=== PATIENT | female | born 1980 | race Caucasian/White ===

== ENCOUNTER 2020-05-08 09:56 | Emergency (ER) | payer OTHER, SELFPAY ==
[2020-05-08 10:06] VITALS: BP 132/92; PULSE 66; RESP 20; O2SAT 100
[2020-05-08 10:51] LABS: Add Urine Microscopic? NO; Appearance Urine Clear (Clear); Bilirubin Urine Negative (Negative); Blood Urine Negative (Negative); Color Urine Straw (Yellow); Glucose Urine UA Negative (Negative); Ketones Urine Negative (Negative); Leukocyte Esterase Ur Negative LEU/UL (Negative); Nitrate Urine Negative (Negative); Protein Urine Negative (Negative); Specific Grav Ur 1.008 (1.001-1.035); Urobilinogen Urine Negative mg/dL (<2.0)
--- NOTE | 2020-05-08 11:02 | ED.HA ---
HPI - Headache General Chief Complaint: Headache Stated Complaint: Neuro Symptoms - LANDIS Time Seen by Provider: 05/08/20 10:13 Source: patient Mode of arrival: ambulatory Limitations: no limitations History of Present Illness HPI Narrative: Patient is a 39-year-old female who presents with headache and visual disturbance that occurred while driving today noted that she had loss patient notes that she lost momentary vision in the right eye involving the periphery this morning while driving to work with left frontal headache patient notes history of migraines but denies similar occurrence in the past as far as visual disturbances are concerned. Patient went to [facility] and was referred to emergency department. On arrival patient notes that her vision has returned to normal and now she has left-sided headache but is feeling much better. Patient also notes she had an anxiety attack at the time of the onset of symptoms Related Data Home Medications Medication Instructions Recorded Confirmed No Home Medications 05/08/20 05/08/20 Allergies Allergy/AdvReac Type Severity Reaction Status Date / Time No Known Allergies Allergy Verified 05/08/20 10:11 Review of Systems Review of Systems: All systems reviewed & are unremarkable except as noted in HPI and below PMFSH Past Medical History Medical History Migraine headache Surgical History Surgical History H/O section Social History Social History (Updated 05/08/20 @ 11:04 by Warren Cervantes PA-C) Smoking status: Never smoker Exam Narrative: Exam Narrative: GENERAL: Well-appearing, well-nourished, and in no acute distress. HEAD: Normocephalic, atraumatic. EYES: PERRLA and EOMI. ENT: Nares clear, no rhinorrhea or epistaxis. Mucous membranes moist. Oropharynx without tonsillar hypertrophy exudate or other lesions. NECK: Supple. No adenopathy or masses. No carotid bruits or JVD CHEST: Clear to auscultation. No respiratory distress. No wheezes rales or rhonchi HEART: Regular rate and rhythm. No murmur heard. Normal peripheral pulses. EXTREMITIES: Normal range of motion. No edema. SKIN: Warm, dry, no rash. NEURO: No focal deficits. Alert and oriented x3. Cranial nerves II through XII grossly intact. Cerebellar intact. Normal speech and gait. Normal [id number] and [id number]. No pronator drift PSYCH: Normal mood and affect. Course Course Emergency Course: Patient in the room in no distress refusing to have an IV prefers to take an ibuprofen notes that she feels fine at this time and would like to be discharged home and will follow with specialty services refused other intervention Vital Signs Vital signs: Vital Signs Pulse Rate 66 05/08/20 10:06 Respiratory Rate 20 05/08/20 10:06 Blood Pressure 132/92 H 05/08/20 10:06 Pulse Oximetry 100 05/08/20 10:06 Pulse Rate 66 05/08/20 10:06 Respiratory Rate 20 05/08/20 10:06 Blood Pressure 132/92 H 05/08/20 10:06 Pulse Oximetry 100 05/08/20 10:06 MDM - Headache MDM Narrative Medical decision making narrative: Patients headache was not sudden or maximal in onset. There are o focal neurological deficits on exam. Subarachnoid hemorrhage is felt to be unlikey at this time. There is no history of fever, and neck is supple without meningismus, making meningitis unlikely. No traumatic history or signs of trauma on exam. No risk factors for CVA, risk factors reviewed. Willard that the patient is likely having a variant of her migraine. Patient will be referred to neurology. patients headache is felt to be a reasonable candidate for outpatient evaluation Lab Data Labs: Lab Results 05/08/20 05/08/20 Range/Units 10:41 10:41 Urine Color Straw (Yellow) Urine Appearance Clear (Clear) Urine pH 6.0 (5.0-9.0) Ur Specific [place] 1.008 (1.001-1.035)
[2020-05-08 11:14] LABS: Amphetamine Screen Urine Negative (Negative); Barbiturate Screen Urine Negative (Negative); Benzodiazepines Screen Urine Negative (Negative); Cannabinoid Screen Urine Negative (Negative); Cocaine Screen Urine Negative (Negative); Methadone Screen Urine Negative (Negative); Opiate Screen Urine Negative (Negative); Phencyclidine Screen Urine Negative (Negative)
== END 2020-05-08 11:20 | disposition home or self-care (01) ==
PROVIDERS: Emergency Medicine Emergency Medical Services; Emergency Provider Emergency Medicine
DX: R51 Headache (principal)
CPT/HCPCS: 80307; 81003; 81025; 99283

== ENCOUNTER → 2020-08-22 12:54 | Outpatient (CLI) | payer OTHER, SELFPAY ==
--- NOTE | ~2020-08-22 | XR_ITS ---
XR cervical spine 4-5V DATE: 08/22/2020 13:39 INDICATION: Migraine with aura TECHNIQUE: AP, open-mouth, lateral, swimmer views COMPARISON: None FINDINGS: There is reversal cervical curvature. C1 and C2 are normally aligned and the odontoid process is intact. No fracture or dislocation or lock ed facet or prevertebral soft tissue swelling. Cervical interspaces are preserved. IMPRESSION: Reversal of cervical curvature Reviewed, dictated and finalized at location A.
--- NOTE | ~2020-08-22 | US_ITS ---
EXAMINATION: US carotid duplex BI DATE: 08/22/2020 13:39 INDICATION: Migraine headache with aura. TECHNIQUE: Grayscale, color Doppler, and pulsed Doppler images of the cervical carotid arteries were obtained. The degree of vessel stenosis is placed in one of the following categories: normal, <50%, 5 0-69%, >=70% but less than near-occlusion, near-occlusion, or total occlusion. Note that percent sten osis relative to normal distal artery lumen diameter is indirectly measured from velocity measurement s as described by Efra, et al. Radiology 2003; [id number]. COMPARISON: None. FINDINGS: RIGHT: The right common carotid artery (CCA) peak systolic velocity (PSV) is 111 cm/s. The right internal ca rotid artery (ICA) PSV is 72 cm/s. The right ICA end-diastolic velocity (EDV) is 35 cm/s. The right I CA/CCA PSV ratio is 0.6. Grayscale and color Doppler images yield an estimate of 0% diameter reductio n from plaque in the ICA. There is antegrade flow in the right vertebral artery. LEFT: The left CCA PSV is 90 cm/s. The left ICA PSV is 66 cm/s. The left ICA EDV is 27 cm/s. The left ICA/C CA PSV ratio is 0.7. Grayscale and color Doppler images yield an estimate of <50% diameter reduction from plaque in the ICA. There is antegrade flow in the left vertebral artery. IMPRESSION: 1. Normal right internal carotid artery. 2. <50% stenosis in the left internal carotid artery. Reviewed, dictated and finalized at location A.
== END ==
PROVIDERS: PCP Family Medicine; Visit Provider Family Medicine
DX: G43.109 Migraine with aura, not intractable, without status migrainosus (principal); H53.9 Unspecified visual disturbance; I65.22 Occlusion and stenosis of left carotid artery
CPT/HCPCS: 72050; 93880

== ENCOUNTER 2022-11-18 09:09 | Emergency (ER) | payer OTHER, SELFPAY ==
[2022-11-18 09:27] VITALS: BP 98/84; PULSE 103; RESP 16; TEMP 36.7; O2SAT 100
[2022-11-18 09:28] VITALS: BP 98/84; PULSE 103; RESP 16; TEMP 36.7; O2SAT 100
--- NOTE | 2022-11-18 09:31 | ED.URI ---
HPI - URI/Sore Throat General Chief Complaint: Upper Respiratory Infection Stated Complaint: rt ear pain, swollen glands, sore throat Time Seen by Provider: 11/18/22 09:29 Source: patient and RN notes reviewed History of Present Illness HPI Narrative: 41 yo F presents to urgent care with complaints of right sided ear pain, slight congestion, and right sided throat pain. Pt states her symptoms started yesterday. Denies any fevers, chills, chest pain, SOB, cough, N/V/D, headache, or dizziness. Pt took ibuprofen and zyrtec yesterday with moderate relief. Related Data Allergies Allergy/AdvReac Type Severity Reaction Status Date / Time No Known Allergies Allergy Verified 11/18/22 09:27 Review of Systems Review of Systems: CONSTITUTIONAL: Denies fever, chills, or sweats. EYES: Denies visual changes, redness, or discharge. ENT:Reports otalgia and sore throat CARDIOVASCULAR: Denies chest pain, palpitations, or edema. RESPIRATORY: Denies cough or dyspnea. GASTROINTESTINAL: Denies abdominal pain, nausea, vomiting, or diarrhea. GENITOURINARY: Denies dysuria or hematuria. SKIN: Denies rash or itching. MUSCULOSKELETAL: Denies back pain, joint pain, or myalgia. NEUROLOGIC: Denies headache, numbness, or weakness. Denies dizziness. [facility] Past Medical History Medical History (Updated 11/18/22 @ 10:06 by Wilda Valentino, SABI) Migraine headache Surgical History Surgical History H/O section Social History Social History (Updated 05/08/20 @ 11:04 by Warren Cervantes, PA-C) Smoking status: Never smoker Comments At the time of my signature, I reviewed and agree with the nursing past medical, surgical, social, and family history. There is no relevant family history pertinent to the patient complaint. Exam Narrative: GENERAL: This is a well-nourished, well-developed patient, in no apparent distress. HEAD: normocephalic, atraumatic. EYES: PERRL. Sclera clear/white. Vision is grossly intact. EARS: External ears normal, auditory canals clear and without drainage, TMs normal without perforation. Hearing grossly intact. NOSE: External nose normal with no obvious nasal discharge, nares without redness, no rhinorrhea. THROAT: Mucous membranes moist, posterior pharynx erythema. NECK: Anterior, right sided, cervical lymphadenopathy. CARDIOVASCULAR: Regular rate and rhythm without murmurs, gallops, or rubs. RESPIRATORY: Clear to auscultation. Breath sounds equal bilaterally. No wheezes, rales, or rhonchi. GASTROINTESTINAL: Abdomen soft, non-tender, nondistended. Bowel sounds are active. No hepato-splenomegaly, or palpable masses. No guarding. SKIN: warm, intact with no suspicious lesions or rash, good texture and turgor. NEURO: awake, alert, and oriented to person, place and time. There were no obvious focal neurologic abnormalities. Course Course Level of Care: Express Care Visit Vital Signs Vital signs: Vital Signs Temperature 98.1 F 11/18/22 09:27 Pulse Rate 103 H 11/18/22 09:27 Respiratory Rate 16 11/18/22 09:27 Blood Pressure 98/84 L 11/18/22 09:27 Pulse Oximetry 100 11/18/22 09:27 Temperature 98.1 F 11/18/22 09:28 Pulse Rate 103 H 11/18/22 09:28 Respiratory Rate 16 11/18/22 09:28 Blood Pressure 106/73 11/18/22 10:02 Pulse Oximetry 100 11/18/22 09:28 Reviewed MDM - URI/Sore Throat MDM Narrative Medical decision making narrative: Increase your fluids, rest, and Vitamin C. Take the Flonase as directed. Continue using your humidifier in the bedroom. Follow up with your chief investment officer. Go to the ER with any new or worsening symptoms. Differential Diagnosis Differential diagnosis: Likely upper respiratory infection, otitis media, sinusitis, viral infection and pharyngitis Lab Data Attestation: I reviewed the patient's lab results. Labs: Strep Screen Presumptive Negative
[2022-11-18 10:02] VITALS: BP 106/73
== END 2022-11-18 10:09 | disposition home or self-care (01) ==
PROVIDERS: Emergency Provider Nurse Practitioner Family; PCP Student in an Organized Health Care Education/Training Program
DX: B34.9 Viral infection, unspecified (principal); J02.9 Acute pharyngitis, unspecified
CPT/HCPCS: 87081; 87880; 99213; G0463